=== PATIENT | male | born 1985 | race Native Hawaiian/Other Pacific Islander ===

== ENCOUNTER 2016-06-27 18:44 | Outpatient (CLI) | payer OTHER | END 2016-06-27 18:46 | disposition short-term general hospital (02) | LOC: AMB 18:44 | DX: M54.2 Cervicalgia (principal); M54.5 Low back pain; V49.88XA Car occupant (driver) (passenger) injured in other specified transport accidents, initial encounter; Y92.488 Other paved roadways as the place of occurrence of the external cause | CPT/HCPCS: A0425; A0427 ==

== ENCOUNTER 2016-06-27 18:50 | Emergency (ER) | payer OTHER ==
[~2016-06-27] VITALS: Ht 185.4 cm; Wt 104.3 kg
[2016-06-27 20:49] VITALS: BP 149/88; TEMP 98.3
== END 2016-06-27 20:49 | disposition home or self-care (01) ==
LOC: ED 18:50
DX: S16.1XXA Strain of muscle, fascia and tendon at neck level, initial encounter (principal); S39.012A Strain of muscle, fascia and tendon of lower back, initial encounter; V43.52XA Car driver injured in collision with other type car in traffic accident, initial encounter
CPT/HCPCS: 96372; 99283; J1885

== ENCOUNTER 2016-10-25 10:48 | Emergency (ER) | payer OTHER ==
[~2016-10-25] VITALS: Ht 182.9 cm; Wt 99.8 kg
[2016-10-25 10:45] VITALS: TEMP 98.4
[2016-10-25 12:27] LABS: PLATELET COUNT 233 K/uL (142-355)
[2016-10-25 12:28] LABS: SODIUM 139 mmol/L (136-145)
[2016-10-25 14:25] VITALS: BP 140/74
== END 2016-10-25 19:06 | disposition home or self-care (01) ==
LOC: ED 10:48
PROVIDERS: Specialist
DX: R45.851 Suicidal ideations (principal); F32.89 Other specified depressive episodes
CPT/HCPCS: 80048; 80307; 80329; 85027; 99285; G0479

== ENCOUNTER 2020-11-28 13:32 | Emergency (ER) | payer OTHER ==
[~2020-11-28] VITALS: Ht 185.4 cm; Wt 99.8 kg
[2020-11-28 13:40] VITALS: BP 154/106; TEMP 97.7
== END 2020-11-28 17:02 | disposition home or self-care (01) ==
LOC: ED 13:32
DX: L08.89 Other specified local infections of the skin and subcutaneous tissue (principal)
CPT/HCPCS: 87070; 87077; 87186; 87205; 99283; J1885